=== PATIENT | male | born 1945 | race Caucasian/White ===

== ENCOUNTER 2018-04-11 12:04 | Emergency (ER) | payer MEDICARE ==
[2018-04-11] MEDS ORDERED: 0.9 % SODIUM CHLORIDE 1,000 ML BAG IV ONE (12:22)
[2018-04-11] MEDS ORDERED: ACETAMINOPHEN 1,000 MG/100 ML BTL IVPB ONE (12:30)
--- NOTE | 2018-04-11 12:33 | Emergency Department Record ---
History of Present Illness - General Chief Complaint: Abdominal Pain Stated Complaint: ABD PAIN Time Seen by Provider: 04/11/18 12:21 Source: Patient, Family Mode of Arrival: Ambulatory Limitations: Other (Dementia) - History of Present Illness Initial Comments: 72 yo male presents with right sided abdominal pain for about 4 days. No trauma. No fevers. No vomiting or diarrhea. No changes in appetite. No rash. No changes in urination. The pain stays on the right side without radiation elsewhere. He has had his appendix removed in the past. No back pain. The area hurts to push on it or move. PCP is the OR or Dr Randall. GARCES Complaint: Abdominal pain Onset/Timin -: Days(s) Location: RUQ, RLQ Radiation: RUQ, RLQ Migration to: RUQ, RLQ Severity: Severe Severity scale (1-10): 9 Quality: Sharp Consistency: Intermittent Improves With: Rest Worsens With: Movement Associated Symptoms: Denies other symptoms - Related Data Home Medications Medication Instructions Recorded Confirmed Last Taken Albuterol Sulfate [Proair Hfa] 1 - 2 puff IH .EVERY 4-6 HOURS PRN 04/11/1804/11 Unknown Budesonide/Formoterol Fumarate 10.2 gm IH BID 04/11/18 04/11/18 Unknown [Symbicort 80-4.5 Mcg Inhaler] Citalopram Hydrobromide [Celexa] 40 mg PO DAILY 04/11/18 04/11/18 Unknown Cyclobenzaprine HCl [Flexeril] 10 mg PO BID 04/11/18 04/11/18 Unknown Divalproex Sodium [Divalproex 250 mg PO DAILY 04/11/18 04/11/18 Unknown Sodium ER] Donepezil HCl 10 mg PO QHS 04/11/18 04/11/18 Unknown Lisinopril 40 mg PO DAILY 04/11/18 04/11/18 Unknown Omeprazole [Prilosec] 20 mg PO DAILY 04/11/18 04/11/18 Unknown Tiotropium [place] [Spiriva] 18 mcg IH DAILY 04/11/18 04/11/18 Unknown Allergies Allergy/AdvReac Type Severity Reaction Status Date / Time No Known Drug Allergies Allergy Verified 04/11/18 12:18 Travel Screening - Travel/Exposure Within Last 30 Days Have you traveled within the last 30 days?: No Review of Systems Constitutional: Denies: Chills, Fever, Malaise, Weakness Eyes: Denies: Eye discharge ENT: Denies: Congestion, Throat pain Respiratory: Denies: Cough, Dyspnea Cardiovascular: Denies: Chest pain, Palpitations, Syncope Endocrine: Denies: Fatigue Gastrointestinal: Reports: As per HPI, Abdominal pain. Denies: Diarrhea, Nausea , Vomiting Genitourinary: Denies: Dysuria, Frequency, Hematuria Musculoskeletal: Denies: Arthralgia, Back pain, Joint swelling, Myalgia Skin: Denies: Bruising, Change in color, Rash Neurological: Denies: Headache, Numbness, Weakness Psychiatric: Denies: Anxiety Hematological/Lymphatic: Denies: Blood Clots, Easy bleeding, Easy bruising Past Medical History - SOCIAL HISTORY Smoking Status: Light tobacco smoker (<10/day) Alcohol Use: None Drug Use: None - RESPIRATORY Hx Respiratory Disorders: Yes Hx Asthma: Yes Hx COPD: Yes - CARDIOVASCULAR Hx Cardio Disorders: Yes Hx Hypertension: Yes - NEURO Hx Neuro Disorders: No - GI Hx GI Disorders: Yes Hx Reflux: Yes - Hx Genitourinary Disorders: No - ENDOCRINE Hx Endocrine Disorders: No - MUSCULOSKELETAL Hx Musculoskeletal Disorders: Yes Hx Arthritis: Yes - PSYCH Hx Psych Problems: Yes Hx Anxiety: Yes Hx Depression: Yes Comment:: alzheimers - HEMATOLOGY/ONCOLOGY Hx Hematology/Oncology Disorders: No Family Medical History Any Significant Family History?: No Physical Exam - General General Appearance: Alert, Cooperative, No acute distress, Other (Memory impairment) Limitations: No limitations - Head Head exam: Atraumatic, Normal inspection - Eye Eye exam: Normal appearance, PERRL. negative: Conjunctival injection, Scleral icterus - ENT ENT exam: Normal exam Ear exam: Normal external inspection Nasal Exam: Normal inspection Mouth exam: Normal external inspection - Neck Neck exam: Normal inspection - Respiratory Respiratory exam: Normal lung sounds bilaterally. negative: Decreased breath sounds, Respiratory distress, Rhonchi, Stridor, Wheezes - Cardiovascular Cardiovascular Exam: Regular rate, Normal rhythm, Normal heart sounds Peripheral Pulses: 2+: Radial (R), Radial (L) - GI/Abdominal GI/Abdominal exam: Soft, Tenderness (tender right side from upper to lower, no mass, soft, no rash, remainder of the abdomen is very soft and non tender). negative: Distended - Rectal Rectal exam: Deferred - exam: Deferred - Extremities Extremities exam: Normal inspection, Full ROM, Normal capillary refill. negative: Tenderness - Back Back exam: Reports: Normal inspection. Denies: CVA tenderness (R), CVA tenderness (L), Rash noted - Neurological Neurological exam: Alert - Psychiatric Psychiatric exam: Normal affect, Normal mood - Skin Skin exam: Dry, Intact, Normal color, Warm Course Vital Signs 04/11/18 12:11 Temperature 98.0 F Pulse Rate 78 Respiratory 20 Rate Blood Pressure 157/83 Pulse Ox 99 - Reevaluation(s) Reevaluation #1: 04/11/18 12:55 No acute changes on the CBC 04/11/18 14:58 The CR is 1.[address] was changed to non contrast (IV) The CT was read as sub centimeter right renal mass, liver cysts, post op appendix, diverticulosis without diverticulitis. No acute process. Waiting for UA 04/11/18 15:27 The UA is negative for acute process. 04/11/18 15:27 We discussed the labs with he mild renal insufficiency We discussed the CT was negative for acute process We discussed home care, reasons to return, and close follow up for recheck Medical Decision Making - Lab Data Result diagrams: 04/11/18 12:20 04/11/18 12:20 Disposition Disposition: Discharge Clinical Impression: Abdominal pain Qualifiers: Abdominal location: unspecified location Qualified Code(s): R10.9 - Unspecified abdominal pain Disposition: Home, Self-Care Condition: (1) Good Instructions: Abdominal Pain (ED) Additional Instructions: Stay well hydrated Return or be recheck in the next 2-3 days if not improving and sooner if worse Return immediately if Adiel has a fever, vomits, or uncontrolled pain He may take Tylenol as directed for pain. Avoid motrin as this can hurt the kidney function. He should have his kidney test rechecked or compared to prior kidney tests with his doctor this week Forms: Patient Portal Access Time of Disposition: 15:30 Quality - Quality Measures Quality Measures: N/A - Blood Pressure Screening Does Patient Have Any of the Following: No Blood Pressure Classification: Pre-Hypertensive BP Reading Systolic Measurement: 157 Diastolic Measurement: 83 Screening for High Blood Pressure: < Pre-Hypertensive BP, F/U Documented > [ [id number]] Pre-Hypertensive Follow-up Interventions: Referral to alternative/primary care provider.
[2018-04-11 12:36] LABS: BASO % 0.5 % (0-6); EOS % 8.1 % (0-6); GRAN % 76.3 % (47-80); HEMATOCRIT 47.5 % (42.0-52.0); HEMOGLOBIN 16.1 gm/dl (14.0-18.0); LYMPH % 9.9 % (16-45); MEAN CELL VOLUME 87.6 fl (81-97); MEAN CORPUSCULAR HEMOGLOBIN 29.7 pg (27-33); MEAN CORPUSCULAR HGB CONC 33.9 g/dl (32-36); MEAN PLATELET VOLUME 8.7 fl (7.4-10.4); MONO % 5.2 % (0-9); PLATELET COUNT 291 K/uL (130-400); RED BLOOD COUNT 5.42 M/uL (4.40-5.70); RED CELL DISTRIBUTION WIDTH 12.9 % (11.5-14.5); WHITE BLOOD COUNT W/O DIFF 9.8 K/uL (4.2-12.2)
[2018-04-11 12:51] LABS: BILIRUBIN,TOTAL 0.5 mg/dL (0.2-1.0); CREATININE 1.7 mg/dL (0.7-1.2); TOTAL PROTEIN 8.2 g/dL (6.6-8.7)
[2018-04-11 12:56] LABS: ALBUMIN 4.6 g/dL (4.0-5.0)
[2018-04-11 12:57] LABS: ALB/GLOB RATIO 1.3 (1.1-1.8)
[2018-04-11 15:23] LABS: URINE APPEARANCE CLEAR; URINE BILIRUBIN NEGATIVE (NEGATIVE); URINE BLOOD NEGATIVE (NEGATIVE); URINE COLOR YELLOW; URINE GLUCOSE (UA) NEGATIVE (NEGATIVE); URINE KETONE NEGATIVE (NEGATIVE); URINE LEUKOCYTE ESTERASE NEGATIVE (NEGATIVE); URINE NITRITE NEGATIVE (NEGATIVE); URINE PROTEIN NEGATIVE (NEGATIVE); URINE UROBILINOGEN 0.2 E.U./dL (0.20 - 1.00)
[2018-04-11] MEDS ORDERED: HYDROCODONE/APAP 5/325MG TABLET PO ONE (15:45)
--- NOTE | 2018-04-12 22:18 | CT SCAN REPORT ---
EXAM: CT SCAN ABDOMEN/PELVIS WO CONTRAST HISTORY: RIGHT-SIDED ABDOMINAL PAIN FOR THE PAST TWO DAYS, SEVERE TODAY. APPENDECTOMY. TECHNIQUE: Axial CT scan of the abdomen and pelvis performed without IV contrast at the referring physician's request. Oral contrast was utilized. COMPARISON: None. FINDINGS: Upper images demonstrate some coronary artery calcification. No pleural or pericardial effusion evident. No calcified gallstones are seen within the gallbladder. No intrarenal calculi identified on either side. No hydronephrosis or hydroureter seen on either side. No ureteral calculus seen on either side and no bladder calculus evident. There is some mild enlargement of the prostate measuring about 5.4 cm in transverse, by 4 cm in AP diameter. Correlation with serum PSA and physical exam suggested. There is a small exophytic mass arising from the posterior aspect of the lower pole of the right kidney measuring about 8 mm in size with a CT density of 46. This is indeterminate and may just be a hyperdense cyst but, if clinically warranted, could be further assessed with a follow-up MRI of the kidneys. There are numerous low-attenuation masses seen in the liver. These are also incompletely evaluated without IV contrast although the largest of these, measuring about 2 cm in size, has a noncontrast CT density of 4 and may well represent a cyst. This could also be evaluated with follow-up MRI, if not previously documented. Evaluation of the viscera limited by lack of IV contrast. Given this limitation , no definite splenic, adrenal, pancreatic, or left renal mass identified. Prominent diverticulosis left side of the colon with a few diverticula in the right side of the colon as well. However, no diverticulitis evident. Oral contrast given has passed throughout the small bowel into the colon with no small bowel obstruction evident. The appendix is not identified consistent with the surgical history. There is an oval, relatively low-density focus in the mid pelvis just superior to the urinary bladder. This measures about 2.4 cm in diameter and has a central component of fat density of -76 CT units. This may be an old area of fat necrosis. No free intraperitoneal air or free intraperitoneal fluid identified. Degenerative disc disease, particularly at the L1-2 interspace. Slight anterior subluxation of the L4 on L5, which appears to be on the basis of prominent facet joint arthropathy at this level. Prominent hypertrophic spurring in the lower thoracic spine. Mild lumbar curve to the left. IMPRESSION: 1. POST-OP APPENDECTOMY. 2. NO URINARY TRACT CALCULI OR HYDRONEPHROSIS IDENTIFIED. 3. SMALL INDETERMINATE LOW-ATTENUATION MASS POSTERIORLY LOWER POLE RIGHT KIDNEY , ONLY ABOUT 8 MM IN SIZE. MULTIPLE LOW-ATTENUATION MASSES IN THE LIVER, THE LARGEST ABOUT 2 CM IN SIZE. THESE ARE ALL INDETERMINATE WITHOUT IV CONTRAST, DESCRIBED ABOVE. 4. MILD ENLARGEMENT OF THE PROSTATE. 5. DIVERTICULOSIS IN THE COLON BUT NO DIVERTICULITIS EVIDENT. 6. OVAL 2.4 CM MASS IN THE MID PELVIS CONTAINING SOME FAT DENSITY MAY REPRESENT AN OLD AREA OF FAT NECROSIS. 7. MULTILEVEL DEGENERATIVE CHANGE IN THE SPINE. JOB NUMBER: [id number] MTDD
== END 2018-04-11 16:02 | disposition home or self-care (01) ==
LOC: ER 12:04
DX: R10.31 Right lower quadrant pain (principal); R10.11 Right upper quadrant pain; J44.9 Chronic obstructive pulmonary disease, unspecified; I10 Essential (primary) hypertension; F17.210 Nicotine dependence, cigarettes, uncomplicated
CPT/HCPCS: 74176; 80053; 81003; 83690; 85025; 96365; 99284; J7030